=== PATIENT | male | born 1985 | race Caucasian/White ===

== ENCOUNTER 2020-05-19 13:49 | Emergency (ER) | payer MEDICAID ==
[~2020-05-19] VITALS: Ht 167.6 cm; Wt 72.1 kg
[2020-05-19 14:13] VITALS: Ht 167.6 cm; Wt 72.1 kg
[2020-05-19 16:14] VITALS: BP 140/87
== END 2020-05-19 16:14 | disposition home or self-care (01) ==
LOC: ED 13:49
DX: M54.42 Lumbago with sciatica, left side (principal); F17.210 Nicotine dependence, cigarettes, uncomplicated
CPT/HCPCS: J1885

== ENCOUNTER 2020-07-19 23:23 | Emergency (ER) | payer SELFPAY ==
[~2020-07-19] VITALS: Ht 172.7 cm; Wt 79.4 kg
[2020-07-19 23:25] VITALS: Ht 172.7 cm; Wt 79.4 kg
[2020-07-20 00:47] VITALS: BP 143/80
== END 2020-07-20 00:47 | disposition home or self-care (01) ==
LOC: ED 23:23
DX: J02.9 Acute pharyngitis, unspecified (principal); I88.9 Nonspecific lymphadenitis, unspecified; J40 Bronchitis, not specified as acute or chronic; F15.10 Other stimulant abuse, uncomplicated; Z20.828 Contact with and (suspected) exposure to other viral communicable diseases
CPT/HCPCS: U0003